=== PATIENT | female | born 1965 | race Two or more races ===

== ENCOUNTER → 2024-09-08 | Outpatient (CLI) | payer BC ==
[2024-09-08 12:52] LABS: Basophils # (auto) 0.1 10 ^3/uL (0-0.2); Basophils % (auto) 0.8 % (0.0-2.0); Eosinophils # (auto) 0 10 ^3/uL (0-0.8); Eosinophils % (auto) 0.5 % (0.0-7.0); Hematocrit 46.1 % (36.0-46.0); Hemoglobin 15.6 g/dL (12.2-16.2); Lymphocytes # (auto) 3.2 10 ^3/uL (0.4-5.4); Lymphocytes % (auto) 40.5 % (10.0-50.0); Mean Corpuscular Hemoglobin 29.6 pg (28.0-32.0); Mean Corpuscular Hgb Conc. 33.9 g/dL (32.0-36.0); Mean Corpuscular Volume 87.3 fL (80.0-100.0); Monocytes # (auto) 0.6 10 ^3/uL (0-1.3); Monocytes % (auto) 7.3 % (0.0-12.0); Neutrophils # (auto) 4.1 10 ^3/uL (1.6-8.6); Neutrophils % (auto) 50.9 % (37.0-80.0); Nucleated Red Blood Cells % 0.1 %; Platelet Count (auto) 221 10^3/uL (140-450); Red Blood Cells 5.28 10^6/uL (4.0-5.20); Red Cell Distribution Width 13.9 % (11.8-14.3)
[2024-09-08 13:13] LABS: Urine Bacteria FEW /hpf (None Seen); Urine Blood TRACE /uL (Negative); Urine Color Yellow (Yellow); Urine Hyaline Cast FEW /lpf (0 - 2); Urine Mucus MODERATE (None Seen); Urine Protein, UAD 1+ (Negative); Urine Specific Gravity 1.022 (1.001-1.035); Urine Squamous Epithelial Cell FEW /hpf (<5); Urine Urobilinogen Normal (Negative); Urine WBC 8 /HPF (0-5)
[2024-09-08 13:15] LABS: Urine Clarity Hazy (Clear)
[2024-09-08 13:26] LABS: % Iron Saturation 30.9 % (15-50); Alanine Aminotransferase 51 U/L (7-40); Albumin 5.1 g/dL (3.2-4.8); Alkaline Phosphatase 110 U/L (46-116); Anion Gap 11 (5-15); Aspartate Aminotransferase 38 U/L (13-40); BUN/Creatinine Ratio 14.6 (10.0-20.0); Blood Urea Nitrogen 12 mg/dL (9-23); Calcium 10.3 mg/dL (8.7-10.4); Carbon Dioxide 29 mmol/L (20-31); Chloride 98 mmol/L (98-107); Cholesterol 204 mg/dL (< 200); Glucose 237 mg/dL (74-106); HDL Cholesterol 50 mg/dL (40-59); LDL Cholesterol 134 mg/dL (< 100); Sodium 138 mmol/L (136-145); Total Protein 8.9 g/dL (5.7-8.2); Triglycerides 200 mg/dL (< 150)
[2024-09-08 13:27] LABS: Bilirubin, Total 0.5 mg/dL (0.2-1.0)
[2024-09-08 13:29] LABS: Free T3 3.06 pg/mL (2.3-4.2); Free T4 (Free Thyroxine) 1.14 ng/dL (0.89-1.76); T3 Total 1.39 ng/mL (0.60-1.81)
[2024-09-08 13:34] LABS: Creatinine, Urine 199.9 mg/dL (30.0-125.0)
[2024-09-08 13:39] LABS: Uric Acid 3.6 mg/dL (3.1-7.8)
== END | disposition home or self-care (01) ==
LOC: LAB 12:05
PROVIDERS: ATTEND Family Medicine
DX: R11.0 Nausea (principal); R14.2 Eructation; Z00.00 Encounter for general adult medical examination without abnormal findings; Z74.8 Other problems related to care provider dependency
CPT/HCPCS: 36415; 80053; 80061; 81001; 82043; 82306; 82570; 82607; 83036; 83540; 83550; 84403; 84439; 84443; 84480; 84481; 84550; 85025

== ENCOUNTER 2025-02-09 07:25 | Outpatient (CLI) | payer BC ==
[2025-02-09 09:50] LABS: Cholesterol 153 mg/dL (< 200); Triglycerides 132 mg/dL (< 150)
[2025-02-09 09:53] LABS: HDL Cholesterol 45 mg/dL (40-59)
== END 2025-02-09 17:00 | disposition home or self-care (01) ==
LOC: LAB 07:25
PROVIDERS: ATTEND Family Medicine
DX: E78.2 Mixed hyperlipidemia (principal); E11.9 Type 2 diabetes mellitus without complications; E55.9 Vitamin D deficiency, unspecified
CPT/HCPCS: 36415; 80061; 82306; 83036